=== PATIENT | male | born 2000 | race African-American/Black ===

== ENCOUNTER 2022-07-28 10:31 | Emergency (ER) | payer SELFPAY ==
[~2022-07-28] VITALS: Ht 180.3 cm; Wt 72.6 kg
[2022-07-28] MEDS ORDERED: IBUPROFEN 400 MG TAB PO STA (11:00)
== END 2022-07-28 12:45 | disposition home or self-care (01) ==
LOC: ER 10:37
DX: R50.9 Fever, unspecified (principal); J06.9 Acute upper respiratory infection, unspecified; R53.1 Weakness; Z20.822 Contact with and (suspected) exposure to COVID-19
CPT/HCPCS: 71046; 87400; 99283; U0002